=== PATIENT | male | born 1975 | race Caucasian/White ===

== ENCOUNTER 2017-11-14 09:02 | Emergency (ER) | payer SELFPAY ==
[2017-11-14 09:20] VITALS: BP 130/86
[2017-11-14] MEDS ORDERED: ASPIRIN 81 MG TABLET, CHEWABLE PO ONE (09:46)
--- NOTE | 2017-11-14 09:47 | ER Document Report ---
ED Cardiac - General Chief Complaint: Chest Pain Stated Complaint: CHEST PAIN Time Seen by Provider: 11/14/17 09:46 Notes: 42-year-old male to the emergency department chief complaint of chest pain 2 days. Patient states that the pain is located in the left anterior portion of the chest. Hurts when he pushed on his chest. States that it feels like a shock sensation. Questionable shortness of breath at times. Denies any lower extremity pain. No prior history of PE. No prior history of DVT. States that people in his family have heart problems but they are either all smokers or drinkers. Does not know any other history other than his brother who had a heart attack when he was in his late 50s. He denies any fever, chills, sweats. TRAVEL OUTSIDE OF THE [place] IN LAST 30 DAYS: No - HPI Patient complains to provider of: Chest pain, Chest tightness, Shortness of breath Use of: Caffeine. denies: Alcohol, Amphetamines, Decongestants Quality of pain: Other - Feels like electrical shocks Severity now: Moderate Severity at worst: Moderate Pain level currently: 3 - She quit smoking 2 years ago. Smoked for approximately 20 years Associated symptoms: Shortness of breath - Related Data Allergies/Adverse Reactions: Penicillins Allergy (Verified 11/14/17 09:04) Past Medical History - General Information source: Patient - Social History Smoking Status: Former Smoker Smoking Education Provided: No Frequency of alcohol use: None Drug Abuse: None Family History: CAD, DM - Past Medical History Cardiac Medical History: Reports: None Pulmonary Medical History: Reports: None Neurological Medical History: Reports: None Endocrine Medical History: Reports: None Renal/ Medical History: Reports: None Malignancy Medical History: Reports None GI Medical History: Reports: Hx Diverticulitis Musculoskeltal Medical History: Reports None Skin Medical History: Reports None Psychiatric Medical History: Reports: None Traumatic Medical History: Reports: None Infectious Medical History: Reports: None Past Surgical History: Reports: Other - Tonsillectomy - Immunizations Immunizations up to date: No Hx Diphtheria, Pertussis, Tetanus Vaccination: No Review of Systems - Review of Systems Constitutional: No symptoms reported EENT: No symptoms reported Cardiovascular: Chest pain Respiratory: Short of breath Genitourinary: No symptoms reported Male Genitourinary: No symptoms reported Musculoskeletal: No symptoms reported Skin: No symptoms reported Hematologic/Lymphatic: No symptoms reported Neurological/Psychological: No symptoms reported Physical Exam - Vital signs Vitals: Temp Pulse Resp BP Pulse Ox 98.1 F 76 20 130/86 H 95 11/14/17 09:19 11/14/17 09:19 11/14/17 09:19 11/14/17 09:19 11/14/17 09:19 Interpretation: Normal - General General appearance: Appears well, Alert - HEENT Head: Normocephalic, Atraumatic Eyes: Normal Pupils: PERRL - Respiratory Respiratory status: No respiratory distress Chest status: Nontender Breath sounds: Normal Chest palpation: Normal - Cardiovascular Rhythm: Regular - There is currently reproducible left anterior chest wall pain when palpating in between the intercostal spaces of the second third rib left anterior chest Heart sounds: Normal auscultation Murmur: No - Abdominal Inspection: Normal Distension: No distension Bowel sounds: Normal Tenderness: Nontender Organomegaly: No organomegaly - Back Back: Normal, Nontender - Extremities General upper extremity: Normal inspection, Nontender, Normal color, Normal ROM , Normal temperature General lower extremity: Normal inspection, Nontender, Normal color, Normal ROM , Normal temperature, Normal weight bearing. No: Winsome's sign - Neurological Neuro grossly intact: Yes Cognition: Normal Orientation: AAOx4 Yajaira Coma Scale Eye Opening: Spontaneous Yajaira Coma Scale Verbal: Oriented Yajaira Coma Scale Motor: Obeys Commands Yajaira Coma Scale Total: 15 Speech: Normal Motor strength normal: LUE, RUE, LLE, RLE Sensory: Normal - Psychological Associated symptoms: Normal affect, Normal mood - Skin Skin Temperature: Warm Skin Moisture: Dry Skin Color: Normal Course - Re-evaluation Re-evalutation: 11/14/17 10:08 Patient decided after being evaluated they did not want to be here. I believe that there is some financial issues involved. Patient states he does not have insurance. I believe patient need a workup and explained to him that with his symptoms more than likely he would need blood work as well as a chest x-ray as well as an IV. Patient states that he would pull his IV out if I put an IV and so do not even try. I told him that I would give him and his some time to think about what they wanted to do. I was informed by the nurse that patient had eloped. - Vital Signs Vital signs: Temp Pulse Resp BP Pulse Ox 98.1 F 76 20 130/86 H 95 11/14/17 09:19 11/14/17 09:19 11/14/17 09:19 11/14/17 09:19 11/14/17 09:19 - EKG Interpretation by Ia EKG shows normal: Sinus rhythm, [place], Intervals, QRS Complexes, ST-T Waves Discharge - Discharge Clinical Impression: Chest pain Qualifiers: Chest pain type: unspecified Qualified Code(s): R07.9 - Chest pain, unspecified
--- NOTE | 2017-11-14 13:01 | EKG REPORT ---
SEVERITY:- NORMAL ECG - SINUS RHYTHM : Confirmed by: Cy Patricio MD 14-Nov-2017 13:00:56
== END 2017-11-14 10:12 | disposition left against medical advice (07) ==
LOC: ER 09:02
DX: R07.9 Chest pain, unspecified (principal); R06.02 Shortness of breath; Z87.891 Personal history of nicotine dependence
CPT/HCPCS: 93005; 93010; 99281

== ENCOUNTER 2018-08-27 18:46 | Emergency (ER) | payer SELFPAY ==
--- NOTE | 2018-08-27 20:02 | ER Document Report ---
ED Medical Screen (RME) - General Chief Complaint: High Blood Sugar Stated Complaint: BLOOD SUGAR ISSUE Time Seen by Provider: 08/27/18 19:51 Notes: 43-year-old male patient was sent to the office from an urgent care today due to elevated blood sugars. He had been going to his eye doctor for frequent changes in his prescription glasses over the last few months. His doctor suggested he go to an urgent care and have his blood sugars checked due to the frequency of his prescription change. Patient admits that he does get up at night to urinate multiple times during the night causing him to not get much good sleep. He is also quite thirsty throughout the day. The urgent care checked his sugars and he reports that he thinks it was in the upper 300s. They told him to come to the emergency room. He does not have other symptoms. He would probably do fine on just Metformin based on his history. I have greeted and performed a rapid initial assessment of this patient. A comprehensive ED assessment and evaluation of the patient, analysis of test results and completion of the medical decision making process will be conducted by additional ED providers. TRAVEL OUTSIDE OF THE [place] IN LAST 30 DAYS: No - Related Data Allergies/Adverse Reactions: Penicillins Allergy (Verified 11/14/17 09:04) Past Medical History - Social History Chew tobacco use (# tins/day): No Frequency of alcohol use: None Drug Abuse: None Renal/ Medical History: Denies: Hx Peritoneal Dialysis GI Medical History: Reports: Hx Diverticulitis Past Surgical History: Reports: Other - Tonsillectomy - Immunizations Immunizations up to date: No Hx Diphtheria, Pertussis, Tetanus Vaccination: No Physical Exam - Vital signs Vitals: Temp Pulse Resp BP Pulse Ox 98.2 F 68 18 125/89 H 96 08/27/18 18:56 08/27/18 18:56 08/27/18 18:56 08/27/18 18:56 08/27/18 18:56 Course - Vital Signs Vital signs: Temp Pulse Resp BP Pulse Ox 98.2 F 68 18 125/89 H 96 08/27/18 18:56 08/27/18 18:56 08/27/18 18:56 08/27/18 18:56 08/27/18 18:56
[2018-08-27 20:37] LABS: HEMATOCRIT 44.2 % (37.9-51.0); MEAN CORPUSCULAR HGB CONC 36.3 g/dL (32.0-36.0); MEAN CORPUSCULAR VOLUME 88 fl (80-97); PLATELET COUNT 314 10^3/uL (150-450); RED BLOOD COUNT 5.02 10^6/uL (4.35-5.55); RED CELL DISTRIBUTION WIDTH 13.7 % (11.5-14.0); WHITE BLOOD COUNT 7.2 10^3/uL (4.0-10.5)
[2018-08-27 20:52] LABS: ALANINE AMINOTRANSFERASE 41 U/L (21-72); ALBUMIN 4.3 g/dL (3.5-5.0); ALKALINE PHOSPHATASE 97 U/L (38-126); ANION GAP 16 (5-19); ASPARTATE AMINO TRANSFERASE 27 U/L (17-59); BILIRUBIN,DIRECT 0.4 mg/dL (0.0-0.4); BILIRUBIN,TOTAL 0.8 mg/dL (0.2-1.3); BLOOD UREA NITROGEN 15 mg/dL (7-20); CALCIUM 9.5 mg/dL (8.4-10.2); CARBON DIOXIDE 27 mmol/L (22-30); CHLORIDE 98 mmol/L (98-107); GLUCOSE 298 mg/dL (75-110); POTASSIUM 4.4 mmol/L (3.6-5.0); SODIUM 140.6 mmol/L (137-145); TOTAL PROTEIN 8.2 g/dL (6.3-8.2)
[2018-08-27 20:53] LABS: ABSOLUTE LYMPHOCYTES# (MANUAL) 3.3 10^3/uL (0.5-4.7); ABSOLUTE MONOCYTES # (MANUAL) 0.6 10^3/uL (0.1-1.4); BASOPHILS % (MANUAL) 1 % (0-2); EOSINOPHILS % (MANUAL) 2 % (0-6); LYMPHOCYTES % (MANUAL) 46 % (13-45); MONOCYTES % (MANUAL) 9 % (3-13); SEGMENTED NEUTROPHILS % (MAN) 42 % (42-78); TOTAL CELLS COUNTED 100
[2018-08-27 20:54] LABS: PLATELET COMMENT ADEQUATE; TOXIC GRANULATION SLIGHT
--- NOTE | 2018-08-27 21:36 | ER Document Report ---
ED General - General Chief Complaint: High Blood Sugar Stated Complaint: BLOOD SUGAR ISSUE Time Seen by Provider: 08/27/18 19:51 Mode of Arrival: Ambulatory Information source: Patient, DrIsidra Rivera, [facility] Records Notes: 43-year-old male with history of diverticulitis presents from an urgent care today due to elevated blood sugars. He had been going to his eye doctor for frequent changes in his prescription glasses over the last few months. His doctor suggested he go to an urgent care and have his blood sugars checked due to the frequency of his prescription change. Patient admits that he does get up at night to urinate multiple times during the night causing him to not get much good sleep. He is also quite thirsty throughout the day. The urgent care checked his sugars and he reports that he thinks it was in the upper 300s. They told him to come to the emergency room. Patient reports increased thirst, urination and weight loss over the last 6 months. He states that he does not like going to the doctors because it is expensive. Patient does not have a primary care physician currently. TRAVEL OUTSIDE OF THE [place] IN LAST 30 DAYS: No - HPI Onset: Other Quality of pain: No pain Associated symptoms: None Exacerbated by: Denies Relieved by: Denies Similar symptoms previously: Yes Recently seen / treated by doctor: Yes - Related Data Allergies/Adverse Reactions: Penicillins Allergy (Verified 11/14/17 09:04) Past Medical History - General Information source: Patient - Social History Smoking Status: Former Smoker Chew tobacco use (# tins/day): No Frequency of alcohol use: None Drug Abuse: None Lives with: Family Family History: CAD, DM Patient has suicidal ideation: No Patient has homicidal ideation: No - Medical History Medical History: Negative Renal/ Medical History: Denies: Hx Peritoneal Dialysis GI Medical History: Reports: Hx Diverticulitis Past Surgical History: Reports: Other - Tonsillectomy - Immunizations Immunizations up to date: No Hx Diphtheria, Pertussis, Tetanus Vaccination: No Review of Systems - Review of Systems Notes: REVIEW OF SYSTEMS: CONSTITUTIONAL : Denies fever, chills, or sweats. Denies recent illness. Denies recent hospitalizations. EENT: Denies eye pain. Denies sore throat, oral lesions, difficulty swallowing. CARDIOVASCULAR: Denies chest pain. Denies palpitations. Denies lower extremity edema. RESPIRATORY: Denies cough. Denies shortness of breath, wheezing. GASTROINTESTINAL: Denies abdominal pain or distention. Denies nausea, vomiting , or diarrhea. Denies blood in vomitus, stools, or per rectum. Denies black, tarry stools. Denies constipation. GENITOURINARY: Denies difficulty urinating, painful urination, blood in urine, testicular pain or penile discharge. MUSCULOSKELETAL: Denies back or neck pain or stiffness. Denies joint pain or swelling. SKIN: Denies rash, lesions or sores. HEMATOLOGIC : Denies easy bruising or bleeding. LYMPHATIC: Denies swollen glands. NEUROLOGICAL: Denies confusion or altered mental status. Denies loss of consciousness. Denies dizziness or lightheadedness. Denies headache. Denies weakness or paralysis. Denies problems difficulty with ambulation, slurred speech. Denies sensory loss, numbness, or tingling. Denies seizures. PSYCHIATRIC: Denies anxiety or stress. Denies depression, suicidal ideation, or PHYSICAL EXAMINATION: GENERAL: Well-appearing, well-nourished and in no acute distress. HEAD: Atraumatic, normocephalic. EYES: Pupils equal round and reactive to light, extraocular movements intact, sclera anicteric, conjunctiva are normal. ENT: Nares patent, oropharynx clear without exudates. Moist mucous membranes. NECK: Normal range of motion, supple without lymphadenopathy LUNGS: Breath sounds clear to auscultation bilaterally and equal. No wheezes rales or rhonchi. HEART: Regular rate and rhythm without murmurs ABDOMEN: Soft, nontender, nondistended abdomen. No guarding, no rebound. No masses appreciated. Musculoskeletal: Normal range of motion, no pitting or edema. No cyanosis. NEUROLOGICAL: Cranial nerves grossly intact. Normal speech, normal gait. Normal sensory, motor exams PSYCH: Normal mood, normal affect. SKIN: Warm, Dry, normal turgor, no rashes or lesions noted. Physical Exam - Vital signs Vitals: Temp Pulse Resp BP Pulse Ox 98.2 F 68 18 125/89 H 96 08/27/18 18:56 08/27/18 18:56 08/27/18 18:56 08/27/18 18:56 08/27/18 18:56 Course - Re-evaluation Re-evalutation: 08/27/18 21:34 Laboratory 08/27/18 08/27/18 08/27/18 20:05 20:05 20:05 WBC 7.2 RBC 5.02 Hgb 16.0 Hct 44.2 MCV 88 MCH 32.0 MCHC 36.3 H RDW 13.7 Plt Count 314 Total Counted 100 Seg Neutrophils % Not Reportable Seg Neuts % (Manual) 42 Lymphocytes % Not Reportable Lymphocytes % (Manual) 46 H Monocytes % Not Reportable Monocytes % (Manual) 9 Eosinophils % Not Reportable Eosinophils % (Manual) 2 Basophils % Not Reportable Basophils % (Manual) 1 Absolute Neutrophils Not Reportable Abs Neuts (Manual) 3.0 Absolute Lymphocytes Not Reportable Abs Lymphs (Manual) 3.3 Absolute Monocytes Not Reportable Abs Monocytes (Manual) 0.6 Absolute Eosinophils Not Reportable Absolute Eos (Manual) 0.1 Absolute Basophils Not Reportable Abs Basophils (Manual) 0.1 Toxic Granulation SLIGHT Platelet Comment ADEQUATE Sodium 140.6 Potassium 4.4 Chloride 98 Carbon Dioxide 27 Anion Gap 16 BUN 15 Creatinine 0.77 Est GFR ( Amer) > 60 Est GFR (Non-Af Amer) > 60 Glucose 298 H Hemoglobin A1c % 11.7 H Calcium 9.5 Total Bilirubin 0.8 Direct Bilirubin 0.4 Neonat Total Bilirubin Not Reportable Neonat Direct Bilirubin Not Reportable Neonat Indirect Bili Not Reportable AST 27 ALT 41 Alkaline Phosphatase 97 Total Protein 8.2 Albumin 4.3 08/28/18 05:17 43-year-old male presents from urgent care after Accu-Chek revealed elevated glucose level. Patient was sent to urgent care by his eye doctor after significant visual changes. He does report increased thirst, increased urination and weight loss over the last 6 months. He does have a family history with a mother with diabetes. He currently denies any medication use or medical problems. He states that he does not go to the doctors because he does not have the money to do so. Vital signs reviewed and patient is afebrile, mildly hypertensive but not hypoxic or tachycardic. He does not appear toxic or dehydrated. He is in no acute distress. Significant laboratory findings included a CMP with a glucose of 298. Patient has a normal anion gap and bicarb. No evidence of DKA. Hemoglobin A1c is 11.7. CBC is without leukocytosis or anemia. I did discuss with the patient that he will need to establish primary care to continue to monitor his glucose and aid him and improvement of his A1c. At this time patient will be started on metformin 500 mg twice daily. Patient was evaluated and treated as appropriate for the patient's presenting symptoms and complaint, with consideration of any critical or life threatening conditions that may be associated with their obtained history and exam as noted above. All results were discussed with patient. Patient provided the opportunity to ask questions, and express concerns. Patient was educated on treatments based on their presumed diagnosis as noted above. At this time we will discharge the patient with return precautions and follow-up recommendations. Verbal discharge instructions given a the bedside. Medication warnings reviewed. Patient is in agreement with this plan and has verbalized understanding of return precautions. After careful consideration I feel that that patient can be safely discharged from the emergency department, they were advised to followup with a primary care physician in 2-3 days. Dictation on this chart was performed using voice recognition software and may result in unintended grammatical, spelling, syntax or errors. 08/28/18 05:18 - Vital Signs Vital signs: Temp Pulse Resp BP Pulse Ox 98.2 F 68 18 122/85 96 08/27/18 18:56 08/27/18 18:56 08/27/18 21:45 08/27/18 21:45 08/27/18 18:56 - Laboratory Result Diagrams: 08/27/18 20:05 08/27/18 20:05 Laboratory results interpreted by me: 08/27/18 08/27/18 08/27/18 20:05 20:05 20:05 MCHC 36.3 H Lymphocytes % (Manual) 46 H Glucose 298 H Hemoglobin A1c % 11.7 H Discharge - Discharge Clinical Impression: Hyperglycemia, Elevated hemoglobin A1c Diabetes Qualifiers: Diabetes mellitus type: type 2 Diabetes mellitus lighting adviser insulin use: without lighting adviser use Diabetes mellitus complication status: without complication Qualified Code(s): E11.9 - Type 2 diabetes mellitus without complications Condition: Good Disposition: HOME, SELF-CARE Instructions: Diabetes ([facility]) Additional Instructions: YOU MUST FOLLOW-UP WITH A PRIMARY CARE DOCTOR [facility] (24-48 hours). You have diabetes and will need lighting adviser management of your blood sugar levels. The most important step is dietary changes. You need to avoid foods/drinks high in sugar and simple carbohydrates. Avoid sugared sodas, sweet tea, sugared coffee, white starch products (potatoes, pastas, rices, breads). You are being started on a medication today called metformin. This often causes abdominal cramping, nausea, and diarrhea in the first weeks of use. These symptoms do stop generally after 3-4 weeks. Please do not stop this medication due to these expected side effects. Please return to the ED immediately if you pass out, become confused, have persistent vomiting, or you have any new or worsening symptoms. Prescriptions: Metformin HCl [Glucophage 500 mg Tablet] 500 mg PO BID #60 tablet Forms: Elevated Blood Pressure Referrals: GLYNN HEWITT MD [ACTIVE STAFF] - Follow up in 3-5 days FANNIE BLAND MD [HONORARY] - Follow up in 3-5 days
[2018-08-27 21:47] VITALS: BP 122/85
== END 2018-08-27 21:45 | disposition home or self-care (01) ==
LOC: ER 18:46
DX: E11.65 Type 2 diabetes mellitus with hyperglycemia (principal); Z88.0 Allergy status to penicillin; Z87.891 Personal history of nicotine dependence
CPT/HCPCS: 36415; 80053; 83036; 85025; 99283